=== PATIENT | male | born 1930 | race Two or more races ===

== ENCOUNTER → 2016-05-22 | Outpatient (CLI) | payer MEDICARE, BC ==
[~2016-05-22] MED LIST: AMMO12CR4 TOP; ASPI1TAB PO; ATEN50TA2; ATEN50TA2 PO; CINN500C9 PO; CLOB0.0548 TOP; ECOT325T5; GLUC500T; GLYB25TA PO; HYDR12.55 PO; LOSA50TA20 PO; PLAV75TA38 PO; REFR0.5D8 OU; SIMV40TA2 PO; TRAM50TA2 PO; TRIA1CR TOP; TRUS1SOL OU; XALA0.002 OU
--- NOTE | 2016-05-22 11:20 | REP ---
PA and lateral chest: Comparison is 01/15/2016. There is a slight effacement of the left costophrenic angle as an interval change, nonspecific, small pleural effusion versus pleural adhesion. On the lateral view there is an diffuse thickening of the major fissure, unchanged, compatible with fibrosis. There is chronic slightly increased radiodensity inferiorly in the left lung, unchanged, which may be secondary to the diffusely thickened major fissure. Right lung is clear. Cardiac size is mildly enlarged, unchanged. There is thoracic scoliosis convex right, unchanged. There are numerous sternotomy wires, all of which demonstrated dehiscence. Some of the fractured segments of these wires have migrated over the anterior chest wall to the right. This is unchanged. Impression: There are findings inferiorly in the left lung, some of which could be chronic in some of which could be acute. Depending on symptomatology consider chest CT for further evaluation. There are no comparison chest CTs film file.
== END ==
LOC: M CLY 10:35
PROVIDERS: ATTEND Family Medicine
DX: R05 Cough (principal); I10 Essential (primary) hypertension; E11.9 Type 2 diabetes mellitus without complications; E78.5 Hyperlipidemia, unspecified; R53.83 Other fatigue; Z86.79 Personal history of other diseases of the circulatory system
CPT/HCPCS: 71020; 80053; 80061; 83036; 83540; 84436; 84443; 84480; 85025; G0463

== ENCOUNTER → 2016-05-22 | Outpatient (REF) | payer MEDICARE, BC ==
[2016-05-22 16:52] LABS: ALBUMIN/GLOBULIN RATIO 0.73 (1.00-1.93); BILIRUBIN,TOTAL 0.5 MG/DL (0.2-1.0); CALCIUM LEVEL 8.6 MG/DL (8.8-10.2); CREATININE FOR GFR 1.43 MG/DL (0.70-1.30); GLOMERULAR FILTRATION RATE 50.3 (>35); THYROXINE (T4) 8.6 UG/DL (4.5-12.0); TOTAL PROTEIN 7.1 GM/DL (6.4-8.2)
[2016-05-22 19:31] LABS: BASO % 0.4 % (0.0-1.0); EOS # 0.3 K/mm3 (0.0-0.50); EOS % 3.1 % (0.0-3.0); LARGE UNSTAINED CELL # 0.2 K/mm3 (0.0-0.4); LARGE UNSTAINED CELL % 1.6 % (0.0-4.0); LYMPH # 1.1 K/mm3 (1.5-4.5); LYMPH % 10.3 % (24.0-44.0); MEAN CORPUSCULAR HEMOGLOBIN 30.3 pg (27.0-33.0); MEAN CORPUSCULAR VOLUME 94.8 fl (80.0-96.0); MONO # 0.6 K/mm3 (0.0-0.8); MONO % 5.6 % (0.0-5.0); NEUTROPHILS # 8.1 K/mm3 (1.8-7.7); NEUTROPHILS % 79.1 % (36.0-66.0); PLATELET COUNT, AUTOMATED 437 k/mm3 (150-450); WHITE BLOOD COUNT 10.3 K/mm3 (4.0-10.0)
== END ==
LOC: M SFHCCLAY 10:24
PROVIDERS: ATTEND Family Medicine
DX: I10 Essential (primary) hypertension (principal); R53.83 Other fatigue; E11.9 Type 2 diabetes mellitus without complications; E78.5 Hyperlipidemia, unspecified; R63.4 Abnormal weight loss

== ENCOUNTER → 2016-07-11 | Outpatient (CLI) | payer MEDICARE, BC ==
--- NOTE | 2016-07-11 11:57 | REP ---
RIGHT ANKLE, FOUR VIEWS: HISTORY: Sprain. There is no acute fracture or dislocation. The joint space is normal in appearance. Soft tissue swelling is present. IMPRESSION: There is no acute fracture or dislocation.
== END ==
LOC: M CLY 11:04
PROVIDERS: ATTEND Family Medicine
DX: S93.431A Sprain of tibiofibular ligament of right ankle, initial encounter (principal); R60.0 Localized edema; Y92.9 Unspecified place or not applicable; Y93.9 Activity, unspecified; Y99.9 Unspecified external cause status; X58.XXXA Exposure to other specified factors, initial encounter
CPT/HCPCS: 73610; G0463

== ENCOUNTER → 2016-08-19 | Outpatient (REF) | payer MEDICARE, BC ==
[2016-08-19 12:29] LABS: ANION GAP 9 MEQ/L (8-16); BLOOD UREA NITROGEN 27 MG/DL (7-18); CALCIUM LEVEL 8.5 MG/DL (8.8-10.2); CARBON DIOXIDE LEVEL 29 MEQ/L (21-32); CHLORIDE LEVEL 102 MEQ/L (98-107); CREATININE FOR GFR 1.21 MG/DL (0.70-1.30); GLOMERULAR FILTRATION RATE > 60.0 (>35); GLUCOSE, FASTING 233 MG/DL (83-110); POTASSIUM SERUM 4.4 MEQ/L (3.5-5.1); SODIUM LEVEL 140 MEQ/L (136-145)
== END ==
LOC: M SFHCCLAY 08:52
PROVIDERS: ATTEND Family Medicine
DX: E11.9 Type 2 diabetes mellitus without complications (principal); Z23 Encounter for immunization
CPT/HCPCS: 80048; 83036; 90670; G0009; G0463

== ENCOUNTER → 2016-10-23 | Outpatient (REF) | payer MEDICARE, BC ==
[~2016-10-23] MED LIST changes: +PLAV1TAB2 PO; -PLAV75TA38 PO; -XALA0.002 OU; +XALA0.007 OU
== END ==
LOC: M SFHCCLAY 16:08
PROVIDERS: ATTEND Family Medicine
DX: R30.0 Dysuria (principal)
CPT/HCPCS: 81002; 87086; G0463